=== PATIENT | male | born 1970 | race Caucasian/White ===

== ENCOUNTER 2019-11-02 18:04 | Emergency (ER) | payer MEDICAID, SELFPAY ==
[~2019-11-02] VITALS: Ht 180.3 cm; Wt 120.2 kg
[2019-11-02 18:26] VITALS: BP 138/83
== END 2019-11-02 19:13 | disposition home or self-care (01) ==
LOC: MED 18:04
DX: J06.9 Acute upper respiratory infection, unspecified (principal); R05 Cough
CPT/HCPCS: 99283